=== PATIENT | female | born 1960 | race American Indian/Alaskan Native ===

== ENCOUNTER 2018-01-09 10:17 | Outpatient (CLI) | payer BC ==
--- NOTE | 2018-01-09 14:11 | Cat Scan Report ---
CT CHEST WITHOUT CONTRAST: HISTORY: Lung cancer screening. COMPARISON: none. TECHNIQUE: Helical CT in 1.25mm intervals without IV contrast. Sagittal and coronal reformatted images. FINDINGS: Thyroid gland: Normal. Tracheobronchial tree: Normal. Esophagus: Normal. Heart: Normal. Pericardium: Normal. Mediastinum: Normal. Lung Mars: A 5 mm noncalcified subpleural nodule is noted in the posterior right upper lobe on image 63, series 2. The remainder of the lungs are clear. No suspicious mass. There may be minimal emphysematous changes in the upper lung zones. No advanced parenchymal lung disease. Pleural Spaces: Normal. Musculoskeletal: Normal. IMPRESSION: 5 mm subpleural nodule in the posterior right upper lobe. Overall this has a benign appearance. Consider followup in 6 months to ensure stability. Minimal emphysematous changes in the upper lobes.
== END 2018-01-09 10:18 | disposition home or self-care (01) ==
LOC: CT 10:17
PROVIDERS: ATTEND Family Medicine
DX: Z12.2 Encounter for screening for malignant neoplasm of respiratory organs (principal); R91.1 Solitary pulmonary nodule; Z87.891 Personal history of nicotine dependence
CPT/HCPCS: 71250

== ENCOUNTER 2022-01-02 03:15 | Emergency (ER) | payer OTHER ==
[2022-01-02 05:22] VITALS: BP 154/59
== END 2022-01-02 18:42 | disposition left against medical advice (07) ==
LOC: ED 03:15
DX: R51.9 Headache, unspecified (principal); Z53.21 Procedure and treatment not carried out due to patient leaving prior to being seen by health care provider